=== PATIENT | female | born 1950 | race Caucasian/White ===

== ENCOUNTER 2017-04-12 06:53 | Emergency (ER) | payer OTHER ==
[~2017-04-12] VITALS: Ht 162.6 cm; Wt 67.8 kg
[2017-04-12 06:59] VITALS: BP 201/80; PULSE 73; RESP 18; TEMP 97.5; O2SAT 98
[2017-04-12] MEDS ORDERED: ZOLO100T PO (07:09)
[2017-04-12] MEDS ORDERED: ORPHENADRINE INJ 60 MG/2 ML AMP IM ONE (07:30)
--- NOTE | 2017-04-12 07:57 | RADRPT ---
EXAM DATE/TIME: 04/12/2017 07:28 [facility] COMPARISON: No previous studies available for comparison. INDICATIONS : Left scapular pain, no injury. RADIATION DOSE: 26.48 CTDIvol (mGy) MEDICAL HISTORY : Carcinoma, breast. Glaucoma SURGICAL HISTORY : Mastectomy, bilateral. Tonsillectomy. ENCOUNTER: Initial ACUITY: 4 - 6 days PAIN SCALE: 10/10 LOCATION: Left neck TECHNIQUE: Volumetric scanning of the cervical spine was performed. Multiplanar reconstructions in the sagittal, coronal and oblique axial planes were performed. Using automated exposure control and adjustment o f the mA and/or kV according to patient size, radiation dose was kept as low as reasonably achievable to obtain optimal diagnostic quality images. DICOM format image data is available electronically f or review and comparison. FINDINGS: VERTEBRAE: Normal vertebral body height. Moderate intervertebral disc space height loss at C5 to 6 and C6-7. A r ight-sided C2-C3 facet has fused. Degenerative facet disease throughout the cervical spine primarily from C3-C5. A few small bone fragments, clearly chronic on the tip of the dens. No endplate fracture seen ALIGNMENT: No evidence of subluxation. C2-C3: The bony spinal canal is normal in size. No evidence of disc bulge or herniation. The neural forami na are bilaterally patent. C3-C4: The bony spinal canal is normal in size. No evidence of disc bulge or herniation. The neural forami na are bilaterally patent. C4-C5: The bony spinal canal is normal in size. No evidence of disc bulge or herniation. The neural forami na are bilaterally patent. C5-C6: The bony spinal canal is normal in size. No evidence of disc bulge or herniation. The neural forami na are bilaterally patent. C6-C7: The bony spinal canal is normal in size. No evidence of disc bulge or herniation. The neural forami na are bilaterally patent. C7-T1: The bony spinal canal is normal in size. No evidence of disc bulge or herniation. The neural forami na are bilaterally patent. CONCLUSION: Degenerative disease in the mid cervical spine. No endplate fractures identified. Scattered facet dis ease. No subluxation or fracture seen. Carlos Garnica MD on April 12, 2017 at 7:54 Board Certified Radiologist. This report was verified electronically.
--- NOTE | 2017-04-12 07:58 | PD ---
HPI Chief Complaint: Back/ Neck Pain or Injury Time Seen by Provider: 07:04 Travel History International Travel<30 days: No Contact w/Intl Traveler<30days: No Traveled to known affect area: No History of Present Illness HPI This is a 66-year-old female who presents for left upper back pain. She states that on April 07, she developed pain in the left upper back. It does not radiate significantly. She does not remember injuring it but is very active and does Jazzercise and bikes frequently. She saw her primary physician 2 days ago and was prescribed meloxicam and Flexeril. She states that this had been helping and she was able to bike 6 miles 2 days ago but early this morning, the pain returned. She states that she feels intermittent paresthesias on the medial aspect of her left arm at times. No weakness, numbness, bowel or bladder dysfunction, saddle paresthesias. No chest pain, shortness of breath, cough, congestion, night sweats, pleuritic component. Aggravated by movement. She has chronic unchanged mild neck pain. Symptoms are mild in severity. Onset gradual. PFSH Past Medical History Depression: Yes Cancer: Yes (breast) Chemotherapy: Yes (2010) Diminished Hearing: No Neurologic: Yes (glaucoma) Immunizations Current: Yes Tetanus Vaccination: Unknown ?: Not Past Surgical History Eye Surgery: Yes (BILAT. CATARACTS) Hysterectomy: Yes Tonsillectomy: Yes Other Surgery: Yes (doube mastectomy) Social History Alcohol Use: Yes (social) Tobacco Use: No Substance Use: No Allergies-Medications (Allergen,Severity, Reaction): Coded Allergies: tetanus toxoid, adsorbed (Unverified Allergy, Intermediate, SWELLING, ) adhesive (Unverified Allergy, Unknown, BLISTERS, 04/12/17) OKAY TO USE SILK TAPE OR PAPER TAPE. Reported Meds & Prescriptions Reported Meds & Active Scripts Active Lidoderm (Lidocaine) 5 % Adh..patch 1 Patch EXTERNAL DAILY Mesa (Hydrocodone-Acetaminophen) 5 Mg-325 Mg Tab 1 Tab PO Q6H PRN Robaxin (Methocarbamol) 500 Mg Tab 1,000 Mg PO TID Reported Zoloft (Sertraline HCl) 100 Mg Tab 100 Mg PO DAILY Review of Systems Except as stated in HPI: all other systems reviewed are Neg Physical Exam Narrative GENERAL: Alert, well nourished, well appearing patient resting on the bed in no acute distress. Vital Signs reviewed SKIN: Focused skin assessment warm/dry. HEAD: Atraumatic. Normocephalic. EYES: Pupils equal and round. No scleral icterus. No injection or drainage. ENT: No nasal bleeding or discharge. Mucous membranes pink and moist. NECK: Trachea midline. No JVD. Spontaneous, painless full range of motion with no meningismus CARDIOVASCULAR: Regular rate and rhythm. No murmur appreciated. Extremities warm and well perfused with bounding peripheral pulses RESPIRATORY: No accessory muscle use. Clear to auscultation. Breath sounds equal bilaterally. Breathing easily and speaking in full sentences GASTROINTESTINAL: Abdomen soft, non-tender, nondistended. Normal bowel sounds. No rigid, rebound, guarding MUSCULOSKELETAL: No obvious deformities. No clubbing. No cyanosis. No edema. Compartments are soft. Positive tenderness to palpation at left mid to upper thoracic paraspinal muscles. No midline tenderness to palpation along the cervical, thoracic, lumbar spine. NEUROLOGICAL: Awake and alert. No obvious cranial nerve deficits. Motor grossly within normal limits. Normal speech. Paresthesias at medial aspect of left arm. No florencio numbness. Normal gait. No pronator drift. Data Data Last Documented VS Vital Signs Date Time Temp Pulse Resp B/P (MAP) Pulse Ox O2 Delivery O2 Flow Rate FiO2 04/12/17 10:04 62 16 178/90 (119) 98 04/12/17 08:03 Room Air 04/12/17 06:[address] Cerv Spine W/O Contrast (04/12/17 07:11) Ct Thor Spine W/O Contrast (04/12/17 07:11) Orphenadrine Inj (Norflex Inj) (04/12/17 07:30) Oxycodone-Acetamin 5-325 Mg (Percocet (04/12/17 08:15) Ketorolac Inj (Toradol Inj) (04/12/17 08:15) Ed Discharge Order (04/12/17 09:57) [facility] Medical Decision Making Medical Screen Exam Complete: Yes Emergency Medical Condition: Yes Medical Record Reviewed: Yes Interpretation(s) Last 24 hours Impressions Thoracic Spine CT 04/12/17 0711 Signed Impressions: Service Date/Time: Wednesday, April 12, 2017 07:32 - CONCLUSION: Normal examination except for some areas of degenerative disc disease most pronounced at the T7-8 level and a left posterolateral focal disc protrusion at the T2-3 level correlate for left T2 radiculopathy. Carlos Garnica MD Cervical Spine CT 04/12/17 0711 Signed Impressions: Service Date/Time: Wednesday, April 12, 2017 07:28 - CONCLUSION: Degenerative disease in the mid cervical spine. No endplate fractures identified. Scattered facet disease. No subluxation or fracture seen. Carlos Garnica MD Differential Diagnosis Muscle strain, spinal stenosis, radiculopathy, metastatic cancer Narrative Course I strongly recommended that the patient undergo MRI given her paresthesias. Patient adamantly refuses, stating that she is claustrophobic. I offered to give her anxiolytics and help her through the process but she adamantly refuses. She understands risks of refusing this test. She has signed an informed refusal. CTs were performed. Patient has T2 radiculopathy. She has no focal weakness. She was given Toradol, Norflex and Percocet with improvement in her symptoms. Upon reexamination at 9:45 AM: She is sitting on the bed, chatting on the telephone. She has been ambulatory around the room. I reviewed the results of the workup with her. Plan for discharge with supportive care, continue meloxicam, Lortab as needed for severe pain and switching muscle relaxer from Flexeril to Robaxin. She was also written a prescription for Lidoderm patches which she will try. We did discuss her history of skin reactions to adhesives and possible reaction with the Lidoderm patches. She states that she will monitor for this closely. She will follow- up in 2 days with her primary physician. She was given referral/contact information for the on-call neurosurgeon and will call arrange a stat follow-up appointment. Patient understands the importance of close outpatient follow-up. She understands she may require further testing and treatment as an outpatient. She understands strict return indications. She is comfortable with this plan and eager to go home. Diagnosis Primary Impression: Thoracic radiculopathy Referrals: Carroll Glover MD 3 days Primary Care Physician 2 days Patient Instructions: Cervical Radiculopathy (GEN), General Instructions, Narcotic given in the ED Additional Instructions: Continue meloxicam with food for pain. Stop taking Flexeril. Use Robaxin as needed for muscle spasm. Use lidocaine patches as directed. Use Mesa as needed for severe pain-no alcohol or driving after this medication. Follow-up with primary physician in 2 days for recheck. Follow up with neurosurgeon as directed. Med/Other Pt SpecificInfo: Prescription(s) given Scripts Lidocaine (Lidoderm) 5 % Adh..patch 1 PATCH EXTERNAL DAILY, #12 Prov: Jennifer Mckeon MD 04/12/17 Hydrocodone-Acetaminophen (Mesa) 5 Mg-325 Mg Tab 1 TAB PO Q6H Y for PAIN, #15 TAB 0 Refills Prov: Jennifer Mckeon MD 04/12/17 Methocarbamol (Robaxin) 500 Mg Tab 1000 MG PO TID for Muscle Spasm, #20 TAB 0 Refills Prov: Jennifer Mckeon MD 04/12/17 Disposition: 01 DISCHARGE HOME Condition: Stable Jennifer Mckeon MD Apr 12, 2017 07:58
[2017-04-12 08:03] VITALS: BP 183/93; PULSE 62; RESP 16; O2SAT 99
--- NOTE | 2017-04-12 08:03 | RADRPT ---
EXAM DATE/TIME: 04/12/2017 07:32 [facility] COMPARISON: No previous studies available for comparison. INDICATIONS : Left scapular pain, no injury. RADIATION DOSE: 27.14 CTDIvol (mGy) MEDICAL HISTORY : Carcinoma, breast. Glaucoma SURGICAL HISTORY : Mastectomy, bilateral. Tonsillectomy. ENCOUNTER: Initial ACUITY: 4 - 6 days PAIN SCALE: 10/10 LOCATION: Left scapular TECHNIQUE: Volumetric scanning of the thoracic spine was performed. Multiplanar reconstructions in the sagittal , coronal and oblique axial planes were performed. Using automated exposure control and adjustment o f the mA and/or kV according to patient size, radiation dose was kept as low as reasonably achievable to obtain optimal diagnostic quality images. DICOM format image data is available electronically f or review and comparison. FINDINGS: The vertebral bodies of the thoracic spine are in normal alignment without evidence of subluxation. Vertebral body height is maintained. No fractures are seen. There is discogenic sclerosis anteriorly at T7-8 T1-T2: Normal. T2-T3: The thecal sac has a normal diameter. There may be a left-sided focal disc protrusion, correlate for left T2 radiculopathy. T3-T4: The thecal sac has a normal diameter. No evidence of disc bulge or protrusion. T4-T5: The thecal sac has a normal diameter. No evidence of disc bulge or protrusion. T5-T6: The thecal sac has a normal diameter. No evidence of disc bulge or protrusion. T6-T7: The thecal sac has a normal diameter. No evidence of disc bulge or protrusion. T7-T8: The thecal sac has a normal diameter. No evidence of disc bulge or protrusion. T8-T9: The thecal sac has a normal diameter. No evidence of disc bulge or protrusion. T9-T10: The thecal sac has a normal diameter. No evidence of disc bulge or protrusion. T10-T11: The thecal sac has a normal diameter. No evidence of disc bulge or protrusion. T11-T12: The thecal sac has a normal diameter. No evidence of disc bulge or protrusion. T12-L1: The thecal sac has a normal diameter. No evidence of disc bulge or protrusion. CONCLUSION: Normal examination except for some areas of degenerative disc disease most pronounced at the T7-8 lev el and a left posterolateral focal disc protrusion at the T2-3 level correlate for left T2 radiculopa thy. Carlos A. Sevigny, MD on April 12, 2017 at 7:59 Board Certified Radiologist. This report was verified electronically.
[2017-04-12] MEDS ORDERED: oxyCODONE/ACETAMINOPHEN 5 MG/325 MG TAB PO ONE (08:15)
[2017-04-12] MEDS ORDERED: KETOROLAC TROMETHAMINE 60 MG/2 ML (IM) VIAL IM ONE (08:15)
[2017-04-12] MEDS ORDERED: ROBA500T PO (09:56)
[2017-04-12] MEDS ORDERED: NORC5TAB PO (09:56)
[2017-04-12] MEDS ORDERED: LIDO1ADH4 EXTERNAL (09:58)
[2017-04-12 10:04] VITALS: BP 178/90
== END 2017-04-12 10:06 | disposition home or self-care (01) ==
LOC: PHED 06:53
DX: M54.14 Radiculopathy, thoracic region (principal); F32.9 Major depressive disorder, single episode, unspecified; Z85.3 Personal history of malignant neoplasm of breast
CPT/HCPCS: 72125; 72128; 96372; 99283; J1885; J2360